=== PATIENT | male | born 1985 | race Caucasian/White ===

== ENCOUNTER 2020-07-16 10:16 | Emergency (ER) | payer OTHER ==
[~2020-07-16] VITALS: Ht 175.3 cm; Wt 79.4 kg
[2020-07-16] MEDS ORDERED: DOXYCYCLINE 10100 M2 PO (10:37)
[2020-07-16] MEDS ORDERED: DIPHENHIST50 MG PO (10:37)
[2020-07-16 10:43] VITALS: BP 129/78
== END 2020-07-16 10:50 | disposition home or self-care (01) ==
LOC: M.ERS 10:16
DX: L73.9 Follicular disorder, unspecified (principal)